=== PATIENT | female | born 1965 ===

== ENCOUNTER 2020-06-17 11:32 | Emergency (ER) | payer SELFPAY ==
[~2020-06-17] VITALS: Ht 170.2 cm; Wt 109.2 kg
--- NOTE | 2020-06-17 11:49 | NUR ---
Task Rn: Initial call placed to medical administrative assistantBritney at this time. Per medical administrative assistant, awaiting more complete history when arrives and willingness of MICHELLE Winchester to sign certificate. Dr. Winchester notified.
--- NOTE | 2020-06-17 11:52 | NUR ---
Task Rn: Called donor network at this time.
--- NOTE | 2020-06-17 12:52 | NUR ---
CUMULATIVE NOTE: PT BIBA AFTER S/O FOUND PT TO BE UNRESPONSIVE. 9-1-1 CONTACTED BY S/O, CPR INITIATED BY S/O. UPON ARRIVAL BY EMS, CPR CONTINUED. EMS FOUND PT TO BE PULSELESS C V-FIB, DIFIBRILLATED. CPR RESUMED. PT PULSELESS IN ASYSTOLE AT FOLLOWING PULSE CHECK. 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 UPON ARRIVAL TO THE ED, CPR WAS CONTINUED. SEE PAPER FORM FOR ALS DOCUMENTATION OF CODE. PT PRONOUNCED BY ED MD NABIL HENDERSON AT 1140. PT'S S/O (YANCI), MOTHER (SAHRA), AND 2 SISTERS PRESENT. MADE AWARE OF EVENTS. FATHER YANCI CONTACTED, CAME TO BEDSIDE TO PRAY WITH FAMILY REQUESTED. PT BELONGINGS SENT HOME WITH PT'S SIGNIFICANT OTHER, YANCI. ITEMS INCLUDED A YELLOW METAL RING WITH CLEAR AND GREEN STONES, DENTURES, AND A PAIR OF TENNIS SHOES.
[2020-06-17] MEDS ORDERED: SODIUM BICARB 8.4%, 50ML SYRINGE ONE (13:02)
[2020-06-17] MEDS ORDERED: EPINEPHRINE SYRINGE 0.1 MG/ML, 10ML ONE (13:02)
[2020-06-17] MEDS ORDERED: CODE BLUE RESPONSE XX ONE (13:02)
== END 2020-06-17 14:36 | disposition expired ==
LOC: ED 14:30
DX: I46.9 Cardiac arrest, cause unspecified (principal); I46.2 Cardiac arrest due to underlying cardiac condition; E11.9 Type 2 diabetes mellitus without complications
CPT/HCPCS: 31500; 92950; 99285